=== PATIENT | female | born 1960 ===

== ENCOUNTER 2020-12-16 14:09 | Emergency (ER) | payer SELFPAY ==
[~2020-12-16] VITALS: Ht 152.4 cm; Wt 58.5 kg
[2020-12-16 16:39] LABS: BASOPHILS # (AUTO) 0.1 X10'3 (0-0.2); BASOPHILS % (AUTO) 0.8 % (0-1); EOSINOPHILS # (AUTO) 0.5 X10'3 (0-0.9); EOSINOPHILS % (AUTO) 3.6 % (0-6); HEMOGLOBIN 14.2 g/dl (12.0-16.0); LYMPHOCYTES # (AUTO) 3.8 X10'3 (1.1-4.8); LYMPHOCYTES % (AUTO) 30.1 % (21-51); MEAN CORPUSCULAR HEMOGLOBIN 31.4 PG (27.0-31.0); MEAN CORPUSCULAR HGB CONC 33.8 g/dL (33.0-36.5); MEAN CORPUSCULAR VOLUME 92.9 FL (78-98); MEAN PLATELET VOLUME 7.8 FL (7.4-10.4); MONOCYTES # (AUTO) 0.8 X10'3 (0-0.9); MONOCYTES % (AUTO) 6.1 % (2-12); NEUTROPHILS # (AUTO) 7.5 X10'3 (1.8-7.7); NEUTROPHILS % (AUTO) 59.4 % (42-75); PLATELET COUNT 409 X10'3 (140-440); RED BLOOD COUNT 4.53 X10'6 (4.20-5.60); RED CELL DISTRIBUTION WIDTH 14.4 % (11.5-14.5); WHITE BLOOD COUNT 12.7 X10'3 (4.5-11.0)
[2020-12-16 16:51] LABS: ALANINE AMINOTRANSFERASE 17 U/L (12-78); ALBUMIN 3.8 G/DL (3.4-5.0); ALBUMIN/GLOBULIN RATIO 1.2 (1.1-1.5); ALKALINE PHOSPHATASE 100 IU/L (46-116); ANION GAP 8 (8-16); ASPARTATE AMINO TRANSFERASE 15 U/L (10-37); BILIRUBIN,TOTAL 0.4 MG/DL (0.1-1.0); BLOOD UREA NITROGEN 28 MG/DL (7-18); BUN/CREATININE RATIO 18.5 (6.6-38.0); CHLORIDE 104 MMOL/L (99-107); CREATININE 1.51 MG/DL (0.40-0.90); GLUCOSE 107 MG/DL (70-104); POTASSIUM 3.9 MMOL/L (3.5-5.1); SODIUM 138 MMOL/L (135-145); TOTAL CARBON DIOXIDE 26.4 MMOL/L (24-32); eGFR 35 ML/MIN
[2020-12-16] MEDS ORDERED: normal saline 1000ML IV soln IVB ONE (17:00)
[2020-12-16] MEDS ORDERED: acetaminophen 325mg tablet PO ONE (17:55)
[2020-12-16] MEDS ORDERED: proCHLORperazine 10 MG/2 ml inj IV ONE (17:55)
--- NOTE | 2020-12-16 18:51 | NUR ---
PATIENT AMBULATED WNL TO BATHROOM HAT PLACED FOR CLEAN CATCH URINE
--- NOTE | 2020-12-16 18:58 | NUR ---
PATIENT LEFT HAT IN BATHROOM AND SOMEONE THRU HER URINE AWAY: BENIGNO TRACY AWARE
--- NOTE | 2020-12-16 19:12 | NUR ---
IV DC'd, cath intact.
--- NOTE | 2020-12-16 19:31 | NUR ---
Awaiting UA from this patient.
[2020-12-16] MEDS ORDERED: LEVO125T PO (20:29)
[2020-12-16 20:32] VITALS: BP 157/92
== END 2020-12-16 20:33 | disposition home or self-care (01) ==
LOC: ER 14:10
DX: R51.9 Headache, unspecified (principal); I10 Essential (primary) hypertension; Z88.2 Allergy status to sulfonamides; Z88.5 Allergy status to narcotic agent; Z79.899 Other long term (current) drug therapy
CPT/HCPCS: 36415; 70450; 80053; 84439; 84443; 85025; 93005; 96361; 96374; 99285; J0780; J7030